=== PATIENT | female | born 1990 | race Two or more races ===

== ENCOUNTER 2018-04-21 09:48 | Emergency (ER) | payer BC, MEDICAID, SELFPAY ==
[~2018-04-21] VITALS: Ht 157.5 cm; Wt 84.0 kg
[2018-04-21] MEDS ORDERED: KETOROLAC 30 MG/1 ML ONE (10:26)
[2018-04-21] MEDS ORDERED: DIAZEPAM 5 MG TABLET ONE (10:27)
[2018-04-21] MEDS ORDERED: DIAZEPAM 5 MG TABLET PO ONE (10:30)
[2018-04-21] MEDS ORDERED: KETOROLAC 30 MG/1 ML IM ONE (10:30)
[2018-04-21 11:07] VITALS: BP 103/63
== END 2018-04-21 11:13 | disposition home or self-care (01) ==
LOC: ED 10:14
DX: S39.012A Strain of muscle, fascia and tendon of lower back, initial encounter (principal); X58.XXXA Exposure to other specified factors, initial encounter; Y93.89 Activity, other specified; Y92.89 Other specified places as the place of occurrence of the external cause; Y99.8 Other external cause status
CPT/HCPCS: 72110; 96372; 99284; J1885

== ENCOUNTER 2018-08-03 18:36 | Emergency (ER) | payer MEDICAID ==
[~2018-08-03] VITALS: Ht 154.9 cm; Wt 84.0 kg
[2018-08-03 18:47] VITALS: BP 118/64
[2018-08-03] MEDS ORDERED: KETOROLAC 30 MG/1 ML ONE (19:22)
[2018-08-03] MEDS ORDERED: DIAZEPAM 5 MG TABLET ONE (19:22)
[2018-08-03] MEDS ORDERED: DIAZEPAM 5 MG TABLET PO ONE (19:30)
[2018-08-03] MEDS ORDERED: KETOROLAC 30 MG/1 ML IM ONE (19:30)
== END 2018-08-03 19:36 | disposition home or self-care (01) ==
LOC: ED 19:28
DX: M54.6 Pain in thoracic spine (principal)
CPT/HCPCS: 96372; 99283; J1885

== ENCOUNTER → 2018-11-22 | Outpatient (CLI) | payer OTHER ==
[2018-11-22 11:40] LABS: BASOPHILS # (AUTO) 0.04 x10^3/uL (0-0.1); BASOPHILS % (AUTO) 1 % (0-1); EOSINOPHILS # (AUTO) 0.17 x10^3/uL (0-0.4); EOSINOPHILS % (AUTO) 2 % (1-7); LYMPHOCYTES # (AUTO) 2.39 x10^3/uL (1-3.4); LYMPHOCYTES % (AUTO) 28 % (22-44); MD NO; MEAN CORPUSCULAR HEMOGLOBIN 28.3 pg (27.0-34.8); MEAN CORPUSCULAR HGB CONC 33.3 g/dL (32.4-35.8); MEAN PLATELET VOLUME 9.4 fL (7.4-10.4); MONOCYTES % (AUTO) 6 % (2-9); NEUTROPHILS # (AUTO) 5.51 x10^3/uL (1.8-6.8); NEUTROPHILS % (AUTO) 64 % (42-75); PLATELET COUNT 218 x10^3/uL (130-400); RED BLOOD COUNT 5.37 x10^6/uL (3.82-5.3); RED CELL DISTRIBUTION WIDTH 14.2 % (9.6-15.2)
[2018-11-22 11:50] LABS: ALANINE AMINOTRANSFERASE 69 U/L (12-78); ALBUMIN 3.8 g/dL (3.4-5.0); ANION GAP 6 mmol/L (5-15); CALCIUM 9.9 mg/dL (8.5-10.1); CHLORIDE 108 mmol/L (98-107); CREATININE 0.68 mg/dL (0.55-1.02)
[2018-11-22 11:53] LABS: ALKALINE PHOSPHATASE 99 U/L (45-117); BILIRUBIN,TOTAL 0.7 mg/dL (0.2-1.0); CHOL/HDL RATIO 3.2; CHOLESTEROL, TOTAL 150 mg/dL (140-239); HDL CHOL % 31 % (28-40); HDL CHOLESTEROL (DIRECT) 47 mg/dL (40-60); LDL CHOLESTEROL,CALCULATED 82 mg/dL (54-169); LDL/HDL RATIO 1.7 (0.5-3.0); TOTAL PROTEIN 7.7 g/dL (6.4-8.2); TRIGLYCERIDES 103 mg/dL (50-200); VLDL CHOLESTEROL 21 mg/dL (0-25)
== END | disposition home or self-care (01) ==
LOC: RAD 11:21
PROVIDERS: ATTEND Family Medicine
DX: J45.20 Mild intermittent asthma, uncomplicated (principal); Z83.3 Family history of diabetes mellitus
CPT/HCPCS: 36415; 80053; 80061; 85025; 85027

== ENCOUNTER 2021-03-16 14:03 | Emergency (ER) | payer MEDICAID, OTHER ==
[~2021-03-16] VITALS: Ht 160 cm; Wt 78.3 kg
[2021-03-16 14:47] LABS: BASOPHILS % (AUTO) 1 % (0-1); EOSINOPHILS % (AUTO) 8 % (1-7); LYMPHOCYTES % (AUTO) 27 % (22-44); MEAN CORPUSCULAR HEMOGLOBIN 28.1 pg (27.0-34.8); MEAN CORPUSCULAR HGB CONC 32.9 g/dL (32.4-35.8); MEAN PLATELET VOLUME 9.1 fL (7.4-10.4); MONOCYTES % (AUTO) 6 % (2-9); NEUTROPHILS % (AUTO) 58 % (42-75); PLATELET COUNT 244 x10^3/uL (130-400); RED BLOOD COUNT 5.15 x10^6/uL (3.82-5.3); RED CELL DISTRIBUTION WIDTH 14.1 % (9.6-15.2)
[2021-03-16 15:00] LABS: ALBUMIN 3.7 g/dL (3.4-5.0); ANION GAP 4 mmol/L (5-15); CALCIUM 10.3 mg/dL (8.5-10.1); CHLORIDE 110 mmol/L (98-107)
--- NOTE | 2021-03-16 15:05 | NUR ---
YARD CONDUCTOR: PT TO ROOM FROM [facility]. PT GIVEN URINE CUP FOR SPECIMAN.
[2021-03-16 15:07] LABS: ALANINE AMINOTRANSFERASE 73 U/L (12-78); ALKALINE PHOSPHATASE 94 U/L (45-117); BILIRUBIN,TOTAL 0.7 mg/dL (0.2-1.0); CREATININE 0.75 mg/dL (0.55-1.02); TOTAL PROTEIN 7.7 g/dL (6.4-8.2)
--- NOTE | 2021-03-16 16:01 | NUR ---
ERMD AT BEDSIDE FOR ASSESSMENT.
[2021-03-16] MEDS ORDERED: ALBUTEROL/IPRATROPIUM 2.5MG/0.5MG, 3 ML ONE (16:11)
[2021-03-16] MEDS ORDERED: ALBUTEROL/IPRATROPIUM 2.5MG/0.5MG, 3 ML NPPB ONE (16:30)
[2021-03-16 16:48] VITALS: BP 120/59
--- NOTE | 2021-03-16 16:48 | NUR ---
PT STATES SHE FEELS MUCH BETTER AFTER NEB TX. "I CAN BREATHE BETTER". CHART UP FOR RECHECK.
--- NOTE | 2021-03-16 17:12 | NUR ---
ERMD AT BEDSIDE TO UPDATE PT ON POC.
== END 2021-03-16 17:35 | disposition home or self-care (01) ==
LOC: ED 17:18
DX: J45.901 Unspecified asthma with (acute) exacerbation (principal); R07.89 Other chest pain; R94.31 Abnormal electrocardiogram [ECG] [EKG]; E11.9 Type 2 diabetes mellitus without complications
CPT/HCPCS: 36415; 71046; 80053; 84703; 85025; 93005; 94640; 99285